=== PATIENT | female | born 1980 | race Caucasian/White ===

== ENCOUNTER 2019-11-27 09:11 | Inpatient (IN) | payer MEDICAID ==
[~2019-11-27] VITALS: Ht 170.2 cm; Wt 66.7 kg
[2019-11-27] MEDS ORDERED: TUBERCULIN, PURIFIED PROTEIN DERIVATIVE 5 TU/0.1 ML SYRINGE ID ONE (09:15)
[2019-11-27 13:14] VITALS: BP 103/65
[2019-11-27 16:00] VITALS: BP 117/72
[2019-11-27] MEDS ORDERED: PNEUMOCOCCAL VACCINE POLYVALENT 0.5 ML VIAL [PPSV23] IM ONE (17:00)
[2019-11-27] MEDS: LORazepam 2 MG TABLET PO PRN (17:03)
[2019-11-27] MEDS ORDERED: PETROLATUM,WHITE 28 GM JELLY TP PRN (19:45)
[2019-11-27] MEDS ORDERED: MAGNESIUM HYDROXIDE SUSPENSION 30 ML UDCUP PO PRN (19:45)
[2019-11-27] MEDS ORDERED: ONDANSETRON HCL 4 MG TABLET PO PRN (19:45)
[2019-11-27] MEDS ORDERED: GuaiFENesin/D-METHORPHAN [SUGAR-FREE] 200-20MG/10 ML SYRUP UDCUP PO PRN (19:45)
[2019-11-27] MEDS ORDERED: LOPERAMIDE HCL 2 MG CAPSULE PO PRN (19:45)
[2019-11-27] MEDS ORDERED: DOCUSATE SODIUM 100 MG CAPSULE PO PRN (19:45)
[2019-11-27] MEDS ORDERED: ALBUTEROL SULFATE HFA 90 MCG/PUFF 8 GM INHALER IH PRN (19:45)
[2019-11-27] MEDS ORDERED: CloNIDine HCL 0.1 MG TABLET PO PRN (19:45)
[2019-11-27] MEDS ORDERED: MAG HYDROX/AL HYDROX/SIMETH ES 30 ML SUSPENSION UDCUP PO PRN (19:45)
[2019-11-27] MEDS: ZOLPIDEM TARTRATE 10 MG TABLET PO PRN (20:40)
[2019-11-28] MEDS: LORazepam 2 MG TABLET PO PRN ×3 (00:21→18:21)
[2019-11-28 01:45] VITALS: BP 118/72
[2019-11-28 07:49] LABS: BASOPHILS % (AUTO) 0.9 % (0.0-2.0); HEMOGLOBIN 11.8 g/dL (12.0-16.0); MEAN CORPUSCULAR HEMOGLOBIN 31.6 pg (26.0-34.0); MEAN CORPUSCULAR HGB CONC 32.9 G/dL (31.0-37.0); MONOCYTES # (AUTO) 0.7 K/uL (0.1-1.0); RED BLOOD CELL COUNT(AUTO) 3.73 MIL/uL (4.00-5.20); RED CELL DISTRIBUTION WIDTH 13.9 % (11.5-14.5)
[2019-11-28 07:57] LABS: EOSINOPHILS % (AUTO) 1.5 % (1.0-6.0); HEMATOCRIT 35.9 % (36-46); MEAN CORPUSCULAR VOLUME 96 fL (80-100); MONOCYTES % (AUTO) 8.2 % (2.0-9.0); NEUTROPHILS # (AUTO) 4.1 K/uL (1.8-7.7); NEUTROPHILS % (AUTO) 51.4 % (40.0-70.0); PLATELET COUNT (AUTO) 229 K/uL (150-450)
[2019-11-28 08:03] VITALS: BP 93/61
[2019-11-28 08:17] LABS: ALANINE AMINOTRANSFERASE 16 U/L (12-78); ALBUMIN 2.9 g/dL (3.4-5.0); ALKALINE PHOSPHATASE 57 U/L (46-116); ANION GAP 8 mmol/L (8-16); ASPARTATE AMINOTRANSFERASE 19 U/L (15-37); BILIRUBIN,TOTAL 0.2 mg/dL (0.1-1.0); CALCIUM, TOTAL 8.5 mg/dL (8.8-10.5); CARBON DIOXIDE 28 mmol/L (22-29); CHLORIDE 104 mmol/L (98-107); CREATININE 0.65 mg/dL (0.60-1.30); GLOMERULAR FILTR. RATE CALC > 60 mL/min (>60); GLUCOSE,RANDOM 91 mg/dL (70-110); HCG,QUANTITATIVE < 1 mIU/mL (0-6); POTASSIUM 3.9 mmol/L (3.5-5.1); SODIUM SERUM 140 mmol/L (136-145); TOTAL PROTEIN, SERUM 5.6 g/dL (6.4-8.2); UREA NITROGEN, BLOOD 14 mg/dL (7-18)
[2019-11-28] MEDS: OLANZapine 5 MG TABLET PO SCH ×2 (10:31→20:20)
[2019-11-28] MEDS: BuPROPion HCL XL 150 MG ER TABLET PO SCH (10:31)
[2019-11-28 16:15] VITALS: BP_SYST 109; BP_SYST 126; BP_DIAS 52; BP_DIAS 66
[2019-11-28] MEDS: ZOLPIDEM TARTRATE 10 MG TABLET PO PRN (20:20)
[2019-11-29 02:51] VITALS: BP 100/68
[2019-11-29] MEDS: LORazepam 2 MG TABLET PO PRN ×3 (05:36→16:45)
[2019-11-29] MEDS: BuPROPion HCL XL 150 MG ER TABLET PO SCH (08:06)
[2019-11-29 08:09] VITALS: BP 108/70
[2019-11-29] MEDS: OLANZapine 5 MG TABLET PO SCH ×3 (08:09→20:41)
[2019-11-29 12:16] VITALS: BP 112/70
[2019-11-29] MEDS: ACETAMINOPHEN 325 MG TABLET PO PRN (12:16)
[2019-11-29 16:01] VITALS: BP 110/56
[2019-11-29] MEDS: ZIPRASIDONE HCL 40 MG CAPSULE PO SCH (16:45)
[2019-11-29] MEDS: FLUoxetine HCL 20 MG CAPSULE PO SCH (20:41)
[2019-11-29] MEDS: ZOLPIDEM TARTRATE 10 MG TABLET PO PRN (20:41)
[2019-11-30] MEDS: LORazepam 2 MG TABLET PO PRN ×3 (00:29→19:58)
[2019-11-30 06:15] VITALS: BP 109/58
[2019-11-30] MEDS: IBUPROFEN 400 MG TABLET PO PRN (06:24)
[2019-11-30 08:07] VITALS: BP 132/87
[2019-11-30] MEDS: BuPROPion HCL XL 150 MG ER TABLET PO SCH (08:09)
[2019-11-30] MEDS: OLANZapine 5 MG TABLET PO SCH ×2 (08:09→21:01)
[2019-11-30] MEDS: ZIPRASIDONE HCL 40 MG CAPSULE PO SCH (16:30)
[2019-11-30 17:21] VITALS: BP 120/71
[2019-11-30] MEDS: ZOLPIDEM TARTRATE 10 MG TABLET PO PRN (21:01)
[2019-11-30] MEDS: FLUoxetine HCL 20 MG CAPSULE PO SCH (21:01)
[2019-12-01 02:40] VITALS: BP 115/79
[2019-12-01] MEDS: LORazepam 2 MG TABLET PO PRN ×4 (02:44→19:12)
[2019-12-01 02:49] VITALS: BP 115/79
[2019-12-01] MEDS: BuPROPion HCL XL 150 MG ER TABLET PO SCH (08:04)
[2019-12-01] MEDS: OLANZapine 5 MG TABLET PO SCH ×2 (08:04→20:42)
[2019-12-01 08:16] VITALS: BP 125/72
[2019-12-01 09:01] LABS: AMPHET/METH SCREEN,URINE NEGATIVE (NEGATIVE); BARBITURATE SCREEN, URINE NEGATIVE (NEGATIVE); BENZODIAZEPINES SCREEN,URINE NEGATIVE (NEGATIVE); CANNABINOID SCREEN,URINE NEGATIVE (NEGATIVE); COCAINE SCREEN,URINE NEGATIVE (NEGATIVE); METHADONE SCREEN, URINE NEGATIVE (NEGATIVE); OPIATE SCREEN,URINE NEGATIVE (NEGATIVE)
[2019-12-01 09:03] LABS: PHENCYCLIDINE SCREEN,URINE NEGATIVE (NEGATIVE)
[2019-12-01 09:11] LABS: APPEARANCE,URINE CLOUDY (CLEAR); BILIRUBIN,URINE NEGATIVE (NEGATIVE); GLUCOSE, URINE (UA) NEGATIVE (NEGATIVE); KETONES,URINE NEGATIVE (NEGATIVE); LEUKOCYTE ESTERASE ,URINE SMALL (NEGATIVE); NITRATE,URINE NEGATIVE (NEGATIVE); OCCULT BLOOD,URINE NEGATIVE (NEGATIVE); PROTEIN,URINE NEGATIVE (NEGATIVE); UROBILINOGEN,URINE 0.2 mg/dL (<=1.0)
[2019-12-01 09:30] LABS: BACTERIA,URINE Few /HPF (None Seen); RBC,URINE None Seen /HPF (0-2); SQUAMOUS EPITHELIAL CELL,UR Many /LPF (None Seen)
[2019-12-01] MEDS: ZIPRASIDONE HCL 40 MG CAPSULE PO SCH (16:49)
[2019-12-01 17:23] VITALS: BP 120/77
[2019-12-01] MEDS: FLUoxetine HCL 20 MG CAPSULE PO SCH (20:41)
[2019-12-01] MEDS: ZOLPIDEM TARTRATE 10 MG TABLET PO PRN (20:42)
[2019-12-02] MEDS: LORazepam 2 MG TABLET PO PRN ×3 (00:52→12:56)
[2019-12-02 01:26] VITALS: BP 113/73
[2019-12-02] MEDS: BuPROPion HCL XL 150 MG ER TABLET PO SCH (07:59)
[2019-12-02] MEDS: OLANZapine 5 MG TABLET PO SCH ×2 (08:00→20:45)
[2019-12-02 08:05] VITALS: BP 112/66
[2019-12-02] MEDS: ZIPRASIDONE HCL 40 MG CAPSULE PO SCH (16:13)
[2019-12-02 16:21] VITALS: BP 107/71
[2019-12-02] MEDS: FLUoxetine HCL 20 MG CAPSULE PO SCH (20:45)
[2019-12-02] MEDS: ZOLPIDEM TARTRATE 10 MG TABLET PO PRN (20:45)
[2019-12-03] MEDS: LORazepam 2 MG TABLET PO PRN ×4 (00:03→18:42)
[2019-12-03 01:03] VITALS: BP 114/72
[2019-12-03] MEDS: ACETAMINOPHEN 325 MG TABLET PO PRN (04:17)
[2019-12-03] MEDS: OLANZapine 5 MG TABLET PO SCH ×2 (10:25→20:19)
[2019-12-03] MEDS: BuPROPion HCL XL 150 MG ER TABLET PO SCH (10:25)
[2019-12-03] MEDS: HALOPERIDOL 5 MG TABLET PO PRN (16:18)
[2019-12-03] MEDS: ZIPRASIDONE HCL 40 MG CAPSULE PO SCH (16:18)
[2019-12-03 16:33] VITALS: BP 112/68
[2019-12-03] MEDS: FLUoxetine HCL 20 MG CAPSULE PO SCH (20:18)
[2019-12-04] MEDS: LORazepam 2 MG TABLET PO PRN ×3 (00:22→14:49)
[2019-12-04 01:42] VITALS: BP 105/66
[2019-12-04] MEDS: ZOLPIDEM TARTRATE 10 MG TABLET PO PRN ×2 (02:05→20:16)
[2019-12-04 08:04] VITALS: BP 90/60
[2019-12-04] MEDS: OLANZapine 5 MG TABLET PO SCH ×2 (08:45→20:16)
[2019-12-04] MEDS: BuPROPion HCL XL 150 MG ER TABLET PO SCH (08:45)
[2019-12-04 09:15] VITALS: BP 106/66
[2019-12-04] MEDS: NICOTINE 14 MG/24 HOUR PATCH TD PRN (14:49)
[2019-12-04 16:01] VITALS: BP 110/70
[2019-12-04] MEDS: ZIPRASIDONE HCL 40 MG CAPSULE PO SCH (16:38)
[2019-12-04] MEDS: FLUoxetine HCL 20 MG CAPSULE PO SCH (20:16)
[2019-12-04] MEDS: IBUPROFEN 400 MG TABLET PO PRN (20:16)
[2019-12-04 20:17] VITALS: BP 117/73
[2019-12-05] MEDS: LORazepam 2 MG TABLET PO PRN ×4 (02:01→16:03)
[2019-12-05 06:08] VITALS: BP 98/64
[2019-12-05] MEDS: OLANZapine 5 MG TABLET PO SCH ×2 (07:41→21:13)
[2019-12-05] MEDS: BuPROPion HCL XL 150 MG ER TABLET PO SCH (07:41)
[2019-12-05] MEDS: NICOTINE 14 MG/24 HOUR PATCH TD PRN (08:00)
[2019-12-05 08:19] VITALS: BP 100/55
[2019-12-05 16:00] VITALS: BP 112/63
[2019-12-05] MEDS: ACETAMINOPHEN 325 MG TABLET PO PRN (16:01)
[2019-12-05] MEDS: ZIPRASIDONE HCL 40 MG CAPSULE PO SCH (16:48)
[2019-12-05] MEDS: ZOLPIDEM TARTRATE 10 MG TABLET PO PRN (21:13)
[2019-12-05] MEDS: FLUoxetine HCL 20 MG CAPSULE PO SCH (21:13)
[2019-12-06] MEDS: LORazepam 2 MG TABLET PO PRN ×4 (00:11→22:56)
[2019-12-06 02:17] VITALS: BP 104/66
[2019-12-06 08:08] VITALS: BP 119/79
[2019-12-06] MEDS: OLANZapine 5 MG TABLET PO SCH ×2 (08:13→21:41)
[2019-12-06] MEDS: BuPROPion HCL XL 150 MG ER TABLET PO SCH (08:13)
[2019-12-06] MEDS: ZIPRASIDONE HCL 40 MG CAPSULE PO SCH (16:07)
[2019-12-06 16:12] VITALS: BP 111/72
[2019-12-06] MEDS: IBUPROFEN 400 MG TABLET PO PRN (18:14)
[2019-12-06] MEDS: FLUoxetine HCL 20 MG CAPSULE PO SCH (21:40)
[2019-12-06] MEDS: ZOLPIDEM TARTRATE 10 MG TABLET PO PRN (21:41)
[2019-12-06] MEDS: HALOPERIDOL 5 MG TABLET PO PRN (23:57)
[2019-12-07 01:24] VITALS: BP 116/75
[2019-12-07 08:21] VITALS: BP 112/52
[2019-12-07] MEDS: BuPROPion HCL XL 150 MG ER TABLET PO SCH (08:27)
[2019-12-07] MEDS: OLANZapine 5 MG TABLET PO SCH ×2 (08:27→20:05)
[2019-12-07] MEDS: LORazepam 2 MG TABLET PO PRN ×3 (08:28→19:14)
[2019-12-07] MEDS: IBUPROFEN 400 MG TABLET PO PRN (13:18)
[2019-12-07 16:26] VITALS: BP 106/65
[2019-12-07] MEDS: ZIPRASIDONE HCL 40 MG CAPSULE PO SCH (16:31)
[2019-12-07] MEDS: HALOPERIDOL 5 MG TABLET PO PRN (19:13)
[2019-12-07] MEDS: FLUoxetine HCL 20 MG CAPSULE PO SCH (20:05)
[2019-12-07] MEDS: ZOLPIDEM TARTRATE 10 MG TABLET PO PRN (20:20)
[2019-12-08 01:53] VITALS: BP 110/72
[2019-12-08] MEDS: LORazepam 2 MG TABLET PO PRN ×3 (02:50→17:17)
[2019-12-08] MEDS: IBUPROFEN 400 MG TABLET PO PRN (06:44)
[2019-12-08] MEDS: BuPROPion HCL XL 150 MG ER TABLET PO SCH (08:28)
[2019-12-08] MEDS: OLANZapine 5 MG TABLET PO SCH ×2 (08:28→20:23)
[2019-12-08 08:36] VITALS: BP 104/57
[2019-12-08 16:16] VITALS: BP 114/60
[2019-12-08] MEDS: ZIPRASIDONE HCL 40 MG CAPSULE PO SCH (16:43)
[2019-12-08] MEDS: FLUoxetine HCL 20 MG CAPSULE PO SCH (20:23)
[2019-12-08] MEDS: HALOPERIDOL 5 MG TABLET PO PRN (20:23)
[2019-12-08] MEDS: ZOLPIDEM TARTRATE 10 MG TABLET PO PRN (20:23)
[2019-12-09 02:05] VITALS: BP 110/70
[2019-12-09] MEDS ORDERED: BUPR-93 PO (07:45)
[2019-12-09] MEDS ORDERED: OLAN5TAB2 PO (07:45)
[2019-12-09] MEDS ORDERED: ZIPR40CA2 PO (07:45)
[2019-12-09 08:15] VITALS: BP 110/62
[2019-12-09] MEDS: BuPROPion HCL XL 150 MG ER TABLET PO SCH (08:42)
[2019-12-09] MEDS: OLANZapine 5 MG TABLET PO SCH (08:42)
[2019-12-09] MEDS: NICOTINE 14 MG/24 HOUR PATCH TD PRN (09:11)
== END 2019-12-09 10:20 | disposition home or self-care (01) | DRG 753 ==
LOC: B3A 13:00
PROVIDERS: ADMIT Psychiatry & Neurology Child & Adolescent Psychiatry; ATTEND Psychiatry & Neurology Child & Adolescent Psychiatry
DX: F31.4 Bipolar disorder, current episode depressed, severe, without psychotic features (principal); F15.20 Other stimulant dependence, uncomplicated; I95.9 Hypotension, unspecified; F43.12 Post-traumatic stress disorder, chronic; I10 Essential (primary) hypertension; D64.9 Anemia, unspecified; F10.10 Alcohol abuse, uncomplicated; F17.210 Nicotine dependence, cigarettes, uncomplicated; F43.10 Post-traumatic stress disorder, unspecified; Z56.0 Unemployment, unspecified; Z59.0 Homelessness; Z81.8 Family history of other mental and behavioral disorders; Z91.5 Personal history of self-harm; F41.9 Anxiety disorder, unspecified; G47.00 Insomnia, unspecified; K59.00 Constipation, unspecified; Z28.21 Immunization not carried out because of patient refusal
CPT/HCPCS: 80307; 87081; 90732